=== PATIENT | female | born 1940 | race Caucasian/White ===

== ENCOUNTER → 2017-02-14 | Outpatient (CLI) | payer OTHER ==
[~2017-02-14] MED LIST: ACET-1311 PO; ADVIN25/60 INH; AMLO-114 PO; ASPCH81X PO; ASPI81TA28 PO; ATOR-26 PO; AZIT-60 PO; CHOL20007 PO; CLC100 PO; CLOP1TAB15 PO; CYAN100T PO; DOCU100C31 PO; ESCI10TA17 PO; FLUT1INH INH; FOLI1TAB7 PO; FURO-85 PO; GABA-112 PO; HMLIS SQ; HYDR5SYP11 PO; INSDGIPEN SC; INSU100I2 SQ; LORA-741 PO; LOSA1TAB38 PO; LPT/40 PO; MELA1TAB5 PO; METO100T14 PO; NVLGI/PEN SC; NYST80OI TOP; PANT40TA PO; POLY335019 PO; PRT/20 PO; SENN-65 PO; SENN-91 PO; VNTHFA/IN PO; WLL100 PO; [UNRECOGNIZED DRUG - CODE] PO
[2017-02-14 21:24] LABS: ALT/SGPT 30 U/L (12-78); BLOOD UREA NITROGEN 29 mg/dl (7-18); BUN/CREATININE RATIO 22.3 (10-20); CARBON DIOXIDE 32 mmol/L (21-32); CHLORIDE 103 mmol/L (98-107); GLUCOSE 106 mg/dl (70-99); POTASSIUM 3.9 mmol/L (3.5-5.1); SODIUM 141 mmol/L (136-145)
[2017-02-14 21:27] LABS: ALKALINE PHOSPHATASE 151 U/L (45-117); AST/SGOT 25 U/L (15-37)
--- NOTE | 2017-02-14 21:40 | DIAGNOSTIC IMAGING REPORT ---
RIGHT KNEE 1 OR 2 VIEWS ROUTINE CLINICAL HISTORY: Right knee pain. COMPARISON: None FINDINGS: Alignment of the right knee is anatomic. No acute fracture or suspicious osseous lesion is identified. No joint effusion is identified. There is extensive tricompartmental osteophytosis of the right knee with moderate narrowing of the 3 compartments. IMPRESSION: 1. No acute fracture. 2. Moderate to severe tricompartmental osteoarthritis of the right knee. Electronically signed by: Sha Sky M.D. 02/14/2017 9:38 PM Dictated Date/Time: 02/14/2017 9:37 PM
--- NOTE | 2017-02-14 21:40 | DIAGNOSTIC IMAGING REPORT ---
RIGHT LOWER EXTREMITY VENOUS DOPPLER CLINICAL HISTORY: Right leg pain. COMPARISON STUDY: No previous studies for comparison. TECHNIQUE: Sonography of the deep venous system of the right lower extremity was performed. Compression and augmentation were evaluated. FINDINGS: Exam was compromised due to suboptimal penetration. The right common femoral, superficial femoral and popliteal veins were compressible. Augmentation was normal. Flow was shown within the deep calf vessels. IMPRESSION: No evidence of deep venous thrombus within the right lower extremity. Electronically signed by: Sha Sky M.D. 02/14/2017 9:39 PM Dictated Date/Time: 02/14/2017 9:38 PM
[2017-02-14 22:00] LABS: CALCIUM 9.5 mg/dl (8.5-10.1)
[2017-02-15 07:30] LABS: ESTIMATED AVERAGE GLUCOSE 137 mg/dl; HA1C FLAG Normal (Normal)
== END | disposition home or self-care (01) ==
LOC: C.ULTR 20:37
PROVIDERS: ATTEND Family Medicine
DX: M79.604 Pain in right leg (principal); E11.9 Type 2 diabetes mellitus without complications; M17.11 Unilateral primary osteoarthritis, right knee

== ENCOUNTER 2017-03-23 19:21 | Emergency (ER) | payer OTHER ==
[~2017-03-23] VITALS: Ht 170.2 cm; Wt 105.8 kg
[~2017-03-23 19:21] MED LIST changes: -ASPI81TA28 PO; -AZIT-60 PO; -CLC100 PO; -CYAN100T PO; -DOCU100C31 PO; -ESCI10TA17 PO; -FLUT1INH INH; -HYDR5SYP11 PO; -LPT/40 PO; -METO100T14 PO; -NVLGI/PEN SC; -NYST80OI TOP; -PANT40TA PO; -SENN-65 PO
[2017-03-23 19:34] VITALS: Ht 170.2 cm; Wt 105.8 kg
[2017-03-23] MEDS ORDERED: LORAZEPAM 2 MG/ML 1 ML VIAL IM STA (20:24)
[2017-03-23] MEDS: HALOPERIDOL LACTATE 5 MG/ML 1 ML VIAL IM STA ×2 (20:24→21:11)
[2017-03-23] MEDS ORDERED: ONDANSETRON INJ 2 MG/ML 2 ML VIAL IV STA ×2 (20:26→21:26)
[2017-03-23] MEDS ORDERED: SODIUM CHLORIDE 0.9% 500ML 500 ML IV STA (20:26)
[2017-03-23] MEDS ORDERED: INSU100I2 SQ (20:29)
[2017-03-23] MEDS ORDERED: CLC100 PO (20:29)
[2017-03-23] MEDS ORDERED: CYAN100T PO (20:30)
--- NOTE | 2017-03-23 20:46 | DIAGNOSTIC IMAGING REPORT ---
CHEST ONE VIEW PORTABLE CLINICAL HISTORY: CHEST PAIN dyspnea COMPARISON STUDY: 03/16/2017 FINDINGS: The bones soft tissues and hemidiaphragms are normal. The cardiomediastinal silhouette is normal. The lungs are clear. The pulmonary vasculature is normal. IMPRESSION: Negative chest. Electronically signed by: Viral Currie M.D. 03/23/2017 8:45 PM Dictated Date/Time: 03/23/2017 8:45 PM
[2017-03-23 21:01] VITALS: O2SAT 100
[2017-03-23 21:05] LABS: BASO % 0.2 %; BASO ABS # 0.01 K/uL (0-0.2); COMPLETE YES; EOS % 1.5 %; HEMATOCRIT 36.2 % (37-47); IG% 0.2 %; LYMPH % 27.6 %; MEAN CELL VOLUME 93.5 fL (80-100); MEAN CORPUSCULAR HEMOGLOBIN 31.3 pg (25-34); MEAN CORPUSCULAR HGB CONC 33.4 g/dl (32-36); NEUT % 63.5 %; PLATELET COUNT 136 K/uL (130-400); RED BLOOD COUNT 3.87 M/uL (4.2-5.4); WHITE BLOOD COUNT 6.53 K/uL (4.8-10.8)
[2017-03-23 21:10] LABS: ISTAT CREATININE 1.9 mg/dl (0.6-1.3); ISTAT HEMOGLOBIN 12.6 g/dl (12.0-16.0); ISTAT IONIZED CALCIUM 1.22 mmol/l (1.12-1.32)
[2017-03-23 21:26] LABS: ALT/SGPT 44 U/L (12-78); BLOOD UREA NITROGEN 37 mg/dl (7-18); BUN/CREATININE RATIO 19.6 (10-20); CARBON DIOXIDE 26 mmol/L (21-32); CHLORIDE 105 mmol/L (98-107); GLUCOSE 134 mg/dl (70-99); POTASSIUM 3.6 mmol/L (3.5-5.1); SODIUM 142 mmol/L (136-145)
[2017-03-23 21:32] LABS: ALKALINE PHOSPHATASE 115 U/L (45-117); AST/SGOT 31 U/L (15-37); CKMB/CK RATIO 1.4 (0-3.0)
--- NOTE | 2017-03-23 21:44 | DIAGNOSTIC IMAGING REPORT ---
CHEST CTA for PULMONARY ARTERIES CT DOSE: 680.76 mGy.cm HISTORY: Chest pain dyspnea TECHNIQUE: Multiaxial CT images of the chest were performed following the intravenous administration of contrast to evaluate the pulmonary arteries. Maximal intensity projection images were also obtained. COMPARISON STUDY: None. FINDINGS: There is a normal caliber thoracic aorta with no evidence for dissection. There is no evidence for pulmonary embolus. No pleural effusions. No pneumothorax. The liver and spleen are unremarkable. No mediastinal or hilar lymphadenopathy. The central airways are patent. The lungs are clear. Mild esophageal wall thickening. IMPRESSION: No evidence for pulmonary embolus. No focal infiltrate. Mild esophageal wall thickening. Electronically signed by: Viral Currie M.D. 03/23/2017 9:43 PM Dictated Date/Time: 03/23/2017 9:41 PM
[2017-03-23] MEDS ORDERED: OPTIRAY 320 IV PRN (21:45)
[2017-03-23] MEDS ORDERED: FAMOTIDINE 20 MG TAB PO STA (21:50)
[2017-03-23] MEDS ORDERED: GI COCKTAIL PO STA (21:50)
[2017-03-23 22:00] LABS: CALCIUM 9.8 mg/dl (8.5-10.1)
[2017-03-23] MEDS ORDERED: SUCRALFATE 1 GM TAB PO ONE (22:00)
[2017-03-23] MEDS ORDERED: AZIT-60 PO (22:18)
[2017-03-23] MEDS ORDERED: HYDR5SYP11 PO (22:18)
[2017-03-24 00:01] VITALS: BP 161/71; PULSE 76; O2SAT 95
--- NOTE | 2017-03-24 00:03 | EMERGENCY ROOM VISIT NOTE ---
History Report prepared by Norma: Jennifer Omalley Under the Supervision of: Dr. Jackson Rueda M.D. First contact with patient: 20:08 Chief Complaint: CHEST PAIN Stated Complaint: CHEST PAIN FROM [facility] Nursing Triage Summary: Pt arrives to ER via ALS from [facility]. Recently admitted for R occipital CVA, discharged yesterday to [facility]. Staff reports pt is generally combative and resistant to care. Pt reportedly gripped her chest this evening and c/o chest pain. EMS was called. Upon arrival to ER pt c/o mild chest pain, but is unable to give the pain a number. EMS reports pt had emesis x1 [employer]. History of Present Illness The patient is a 76 year old female who presents to the Emergency Room with complaints of persistent chest pain starting yesterday. According to EMS, the patient comes from [facility]. She was discharged from [facility] yesterday after diagnosis of right occipital CVA. She indicated that she had chest pain today prompting [facility] staff to call for EMS. They report the patient is combative and resistant to care. She vomited once. She is currently having chest pain which she describes as "little ones". She also complains of leg and finger numbness. She reports vomiting. She denies any abdominal pain. The history is limited due to the patient's dementia. Source of History: patient, EMS History Limited By: dementia Onset: yesterday Position: chest Quality: other (pain) Timing: other (persistent) Associated Symptoms: + vomiting, + numbness, No abdominal pain Review of Systems See HPI for pertinent positives & negatives. A total of 10 systems reviewed and were otherwise negative. Past Medical & Surgical Medical Problems: (1) Acute metabolic encephalopathy (2) VALENTIN (acute kidney injury) (3) Asthma (4) Atrial fibrillation (5) Dehydration (6) Diabetes (7) Liver cirrhosis (8) Sleep apnea Surgical Problems: (1) H/O heart artery stent (2) History of back surgery Family History Stroke Social History Smoking Status: Unknown if Ever Smoked Alcohol Use: none Drug Use: none Marital Status: Housing Status: lives with family Occupation Status: retired Current/Historical Medications Scheduled Amlodipine (Norvasc), 10 MG PO QAM Aspirin (Aspirin Chewable), 81 MG PO DAILY Atorvastatin (Lipitor), 80 MG PO QPM Bupropion HCl (Bupropion HCl), 100 MG PO BID Cholecalciferol (Vitamin D3), 2,000 INTER.UNIT PO QAM Clopidogrel (Plavix), 75 MG PO QAM Cyanocobalamin (Vitamin B-12), 100 MCG PO DAILY Docusate Sodium (Docusate Sodium), 100 MG PO BID Fluticasone Prop/Salmeterol (Advair Diskus 250/50 60 Dose), 1 PUFF INH BID Folic Acid (Folvite), 1 MG PO QAM Furosemide (Lasix), 20 MG PO QAM Insulin Lispro (Human) (Humalog Kwikpen), 15 UNITS SQ Q12 Losartan Potassium (Cozaar), 100 MG PO QAM Pantoprazole (Protonix), 20 MG PO QAM Sennosides-Docusate Sodium (Senna S), 2 TAB PO DAILY Scheduled PRN Acetaminophen (Tylenol), 650 MG PO Q4 PRN for Pain Albuterol Hfa (Ventolin Hfa), 2 PUFFS PO Q4 PRN for Shortness of Breath Polyethylene Glycol 3350 (Miralax), 17 GM PO DAILY PRN for prn Allergies Coded Allergies: Iodinated Diagnostic Agents (Unverified Allergy, Unknown, UNKNOWN, 03/23/17) Physical Exam Vital Signs Date Time Temp Pulse Resp B/P (MAP) Pulse Ox O2 Delivery O2 Flow Rate FiO2 03/24/17 00:01 76 18 161/71 95 03/23/17 22:49 72 17 171/81 94 Room Air 03/23/17 21:58 73 03/23/17 21:30 73 18 166/75 93 Room Air 03/23/17 21:01 100 Room Air 03/23/17 19:34 100 Room Air 03/23/17 19:34 68 24 179/84 100 Room Air Physical Exam GENERAL: Patient is a healthy-appearing well-nourished HEAD: Normocephalic atraumatic EYES: Ocular movements intact pupils equal and react to light OROPHARYNX mucous membranes are moist no exudates present no erythema or edema present NECK: Supple no nuchal rigidity CHEST: Good equal expansion LUNGS: Clear and equal to auscultation CARDIAC: Normal S1 and S2 ABDOMEN: Soft nontender no guarding BACK: No CVA tenderness EXTREMITIES: No pain upon palpation normal muscle strength in all groups no clubbing cyanosis or edema NEURO: Patient is following commands is answering questions appropriately. Alert and oriented x3 Cranial Nerves 2-12 grossly intact Medical Decision & Procedures ER Provider Diagnostic Interpretation: X-ray results as stated below per interpretation by me and the radiologist. Radiology results as stated below per my review and radiologist interpretation: CHEST ONE VIEW PORTABLE CLINICAL HISTORY: CHEST PAIN dyspnea COMPARISON STUDY: 03/16/2017 FINDINGS: The bones soft tissues and hemidiaphragms are normal. The cardiomediastinal silhouette is normal. The lungs are clear. The pulmonary vasculature is normal. IMPRESSION: Negative chest. Electronically signed by: Viral Currie M.D. 03/23/2017 8:45 PM Dictated Date/Time: 03/23/2017 8:45 PM CHEST CTA for PULMONARY ARTERIES CT DOSE: 680.76 mGy.cm HISTORY: Chest pain dyspnea TECHNIQUE: Multiaxial CT images of the chest were performed following the intravenous administration of contrast to evaluate the pulmonary arteries. Maximal intensity projection images were also obtained. COMPARISON STUDY: None. FINDINGS: There is a normal caliber thoracic aorta with no evidence for dissection. There is no evidence for pulmonary embolus. No pleural effusions. No pneumothorax. The liver and spleen are unremarkable. No mediastinal or hilar lymphadenopathy. The central airways are patent. The lungs are clear. Mild esophageal wall thickening. IMPRESSION: No evidence for pulmonary embolus. No focal infiltrate. Mild esophageal wall thickening. Electronically signed by: Viral Currie M.D. 03/23/2017 9:43 PM Dictated Date/Time: 03/23/2017 9:41 PM Laboratory Results 03/23/17 20:55 Red Blood Count 3.87, Mean Corpuscular Volume 93.5, Mean Corpuscular Hemoglobin 31.3, Mean Corpuscular Hemoglobin Concent 33.4, Mean Platelet Volume 12.0, Neutrophils (%) (Auto) 63.5, Lymphocytes (%) (Auto) 27.6, Monocytes (%) (Auto) 7.0, Eosinophils (%) (Auto) 1.5, Basophils (%) (Auto) 0.2, Neutrophils # (Auto) 4.15, Lymphocytes # (Auto) 1.80, Monocytes # (Auto) 0.46, Eosinophils # (Auto) 0.10, Basophils # (Auto) 0.01 03/23/17 20:55 Test 03/23/17 20:55 03/23/17 20:58 03/23/17 22:41 White Blood Count 6.53 K/uL (4.8-10.8) Red Blood Count 3.87 M/uL (4.2-5.4) Hemoglobin 12.1 g/dL (12.0-16.0) Hematocrit 36.2 % (37-47) Mean Corpuscular Volume 93.5 fL (80-100) Mean Corpuscular Hemoglobin 31.3 pg (25-34) Mean Corpuscular Hemoglobin Concent 33.4 g/dl (32-36) Platelet Count 136 K/uL (130-400) Mean Platelet Volume 12.0 fL (7.4-10.4) Neutrophils (%) (Auto) 63.5 % Lymphocytes (%) (Auto) 27.6 % Monocytes (%) (Auto) 7.0 % Eosinophils (%) (Auto) 1.5 % Basophils (%) (Auto) 0.2 % Neutrophils # (Auto) 4.15 K/uL (1.4-6.5) Lymphocytes # (Auto) 1.80 K/uL (1.2-3.4) Monocytes # (Auto) 0.46 K/uL (0.11-0.59) Eosinophils # (Auto) 0.10 K/uL (0-0.5) Basophils # (Auto) 0.01 K/uL (0-0.2) RDW Standard Deviation 49.4 fL (36.4-46.3) RDW Coefficient of Variation 14.6 % (11.5-14.5) Immature Granulocyte % (Auto) 0.2 % Immature Granulocyte # (Auto) 0.01 K/uL (0.00-0.02) Est Creatinine Clear Calc Drug Dose 32.5 ml/min Estimated GFR () 29.6 Estimated GFR (Non- 25.5 BUN/Creatinine Ratio 19.6 (10-20) Calcium Level 9.8 mg/dl (8.5-10.1) Total Bilirubin 0.7 mg/dl (0.2-1) Direct Bilirubin 0.2 mg/dl (0-0.2) Aspartate Amino Transf (AST/SGOT) 31 U/L (15-37) Alanine Aminotransferase (ALT/SGPT) 44 U/L (12-78) Alkaline Phosphatase 115 U/L (45-117) Total Creatine Kinase 218 U/L (26-192) Creatine Kinase MB 3.1 ng/ml (0.5-3.6) Creatine Kinase MB Ratio 1.4 (0-3.0) Troponin I < 0.015 ng/ml (0-0.045) Total Protein 7.7 gm/dl (6.4-8.2) Albumin 3.8 gm/dl (3.4-5.0) Lipase 145 U/L (73-393) Bedside Hemoglobin 12.6 g/dl (12.0-16.0) Bedside Hematocrit 37 % (37-47) Bedside Sodium 142 mEq/L (135-144) Bedside Potassium 3.7 mEq/L (3.3-5.0) Bedside Chloride 103 mEq/L (101-112) Bedside Total CO2 26 mEq/l (24-31) Anion Gap 17.0 mmol/L (16-25) Bedside Blood Urea Nitrogen 34 mg/dl (7-18) Bedside Creatinine 1.9 mg/dl (0.6-1.3) Bedside Glucose (other) 145 mg/dl (70-99) Bedside Ionized Calcium (Oanh) 1.22 mmol/l (1.12-1.32) Bedside Troponin I < 0.030 ng/ml (0-0.045) Labs reviewed by ED physician. Medications Administered Medications (Trade) Dose Ordered Sig/Lalitha Route Start Time Stop Time Status Last Admin Dose Admin Lorazepam (Ativan Inj) 1 mg NOW STAT IM 03/23/17 20:24 03/23/17 20:26 DC 03/23/17 21:11 1 MG Ondansetron HCl (Zofran Inj) 4 mg NOW STAT IV 03/23/17 20:26 03/23/17 20:29 DC 03/23/17 21:11 4 MG Sodium Chloride 500 ml @ 999 mls/hr Q31M STAT IV 03/23/17 20:26 03/23/17 20:56 DC 03/23/17 20:26 999 MLS/HR Ondansetron HCl (Zofran Inj) 4 mg NOW STAT IV 03/23/17 21:26 03/23/17 21:27 DC 03/23/17 21:49 4 MG ECG Indication: chest pain Rate (beats per minute): 68 Rhythm: normal sinus Findings: LBBB, no acute ischemic change, no ectopy Comparison ECG Date: 17-Mar-2017 Change: no significant change Change: Repeat EKG: NSR, rate 73, LBBB, no ectopy, no ischemia ED Course 2010: Past medical records reviewed. The patient was evaluated in room B3B. A complete history and physical examination was performed. 2022: I spoke with the patient's daughter. She has consented to any necessary tests for the patient. 2023: Lorazepam 1 mg IM. 2025: NSS 500 ml @ 999 mls/hr IV, Zofran Inj 4 mg IV. 2125: Zofran Inj 4 mg IV. 2149: Famotidine 20 mg PO, Gi Cocktail 24 ml PO. 2199: Sucralfate 1 gm PO. 2309: Upon reexamination the patient is resting comfortably. I discussed results and treatment plan with the patient. She verbalizes agreement and understanding. The patient is ready for discharge. Medical Decision Differential diagnosis: Etiologies such as cardiac ischemia, aortic dissection, pulmonary embolism, pneumonia, pneumothorax, musculoskeletal, infections, pericarditis, myocarditis , esophageal rupture, gastrointestinal, as well as others were entertained. Medication Reconciliation: I attest that I have personally reviewed the patient' s current medication list Blood Pressure Screening: Patient was found to have an elevated blood pressure and was referred to their primary care doctor for recheck and further treatment This is a 76-year-old female who is a history of dementia that presents emergency department complaining of chest pain. Upon arrival to emergency department the patient has no evidence of chest pain however is adamantly refusing that anybody even attempt an IV draw laboratory work. I explained this to the patient's daughter and reiterated that nothing could be done and less the patient be sedated. Water wishes everything to be performed therefore the patient was sedated with Ativan. She then allowed an IV along with an EKG. The patient has no evidence of ischemia. She has a normal CK-MB and troponin. A repeat troponin level was drawn approximately 90 minutes later with a new EKG. EKGs were compared to previous EKGs and showed no acute process. The patient's CAT scan of her chest is concerning for what appears to be esophagitis. I do feel that the patient is safe enough to be discharged home based on all findings as listed above. She was given a GI cocktail Pepcid and Carafate. Patient and family were in agreement with the treatment plan. Impression Primary Impression: Reflux esophagitis Scribe Attestation The scribe's documentation has been prepared under my direction and personally reviewed by me in its entirety. I confirm that the note above accurately reflects all work, treatment, procedures, and medical decision making performed by me. Departure Information Dispostion Home / Self-Care Referrals Rupinder Snider (PCP) Forms HOME CARE DOCUMENTATION FORM, IMPORTANT VISIT INFORMATION Patient Instructions ED GERD, My [facility] Additional Instructions Follow up with Dr Ace's office You have been examined and treated today on an emergency basis only. This is not a substitute for, or an effort to provide, complete comprehensive medical care. It is impossible to recognize and treat all injuries or illnesses in a single emergency department visit. It is therefore important that you follow up closely with your PCP. Call as soon as possible for an appointment. Thank you for your time and consideration. I look forward to speaking with you again soon. Please don't hesitate to call us if you have any questions.
== END 2017-03-24 00:06 | disposition home or self-care (01) ==
LOC: EDBD 19:21 → C.EDB 19:23
DX: K21.0 Gastro-esophageal reflux disease with esophagitis (principal); F03.90 Unspecified dementia, unspecified severity, without behavioral disturbance, psychotic disturbance, mood disturbance, and anxiety; J45.909 Unspecified asthma, uncomplicated; I48.91 Unspecified atrial fibrillation; E11.9 Type 2 diabetes mellitus without complications; I44.7 Left bundle-branch block, unspecified; K74.60 Unspecified cirrhosis of liver; G47.30 Sleep apnea, unspecified; Z95.5 Presence of coronary angioplasty implant and graft; Z79.82 Long term (current) use of aspirin; Z79.4 Long term (current) use of insulin